=== PATIENT | female | born 1980 | race African-American/Black ===

== ENCOUNTER → 2017-04-27 | Outpatient (CLI) | payer OTHER ==
--- NOTE | 2017-04-27 10:23 | RAD ---
Examination: Ultrasound left breast limited History: History of left breast lump. Comparison: None available Findings. Targeted ultrasound of the left breast at 11:00 position 3 cm from the nipple demonstrates a 1.6 cm simple appearing cyst. There is another cystic structure measuring 1.0 cm identified at 11:00 position 2 cm from the nipple likely simple cyst. Impression: 2 simple appearing cysts identified in the left breast at 11:00 position with the largest measuring 1.6 cm. BI-RADS Category 2. Benign findings. Recommend routine screening mammogram when the patient is due for a screening mammogram.
== END | disposition home or self-care (01) ==
LOC: KCIC US 09:52
PROVIDERS: ATTEND Obstetrics & Gynecology
DX: N63 Unspecified lump in breast (principal)
CPT/HCPCS: 76641

== ENCOUNTER → 2018-02-11 | Outpatient (CLI) | payer OTHER | END | disposition home or self-care (01) | LOC: KCIC MAMMO 12:50 | DX: N63.10 Unspecified lump in the right breast, unspecified quadrant (principal) | CPT/HCPCS: 76641; 77066 ==